=== PATIENT | female | born 1960 | race Caucasian/White ===

== ENCOUNTER 2017-03-16 18:00 | Observation (INO) | payer MEDICAID ==
--- NOTE | 2017-03-16 18:37 | ED Physician Documentation ---
PD HPI FOCAL NEURO - Stated complaint Stated Complaint: WORD FINDING DIFFICULTY - Chief complaint Chief Complaint: Neuro - History obtained from History obtained from: Patient - History of Present Illness Timing - onset: Today (this morning about 7:30 am) Timing - duration: Hours (1 hour) Timing - details: Abrupt onset. No: Still present Severity of deficit: Moderate (she was talking on phone with a client ([employer]) and noted onset of trouble processing what she wanted to say and get the correct words aligned. She talked with the client who said that she did have very slow talking but the words were intelligible and appropriate. She also felt some numbness or just not quite right on left face. No arm nor leg weakness. This lasted about an hour and then talking normal, but still feeing like her face felt "funny" on left.) Weakness: No: Face, Arm, Hand, Leg, Foot, Right, Left, Other Numbness: Face, Left Associated symptoms: No: Nausea / vomiting, Syncope, Head injury Contributing factors: negative: Anticoagulated, Vascular dz, Atrial fibrillation Similar symptoms before: Has not had sx before Recently seen: Not recently seen Review of Systems Constitutional: denies: Fever, Chills, Myalgias, Fatigue Nose: denies: Rhinorrhea / runny nose, Congestion Throat: denies: Sore throat Cardiac: denies: Chest pain / pressure, Palpitations Respiratory: denies: Dyspnea, Cough, Wheezing GI: denies: Abdominal Pain, Nausea, Vomiting : denies: Dysuria, Frequency Skin: denies: Rash, Lesions Musculoskeletal: reports: Other (she struck her right little toe on furniture couple days ago with bruising and swelling at base of little toe. No calf/foot injury.) Neurologic: reports: Altered mental status (the receptive aphasia earlier today and then feeling left face "numbness"/just not feeling right.). 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 - Present Medications Home Medications: Ambulatory Orders Medication Instructions Recorded Confirmed Thyroid,Pork [Wp Thyroid] 130 mg PO DAILY 01/08/15 03/16/17 - Allergies Allergies/Adverse Reactions: Allergies Allergy/AdvReac Type Severity Reaction Status Date / Time codeine AdvReac Itching Verified 02/08/14 16:16 narcotic AdvReac Itching Uncoded 02/08/14 16:18 - Social History Does the pt smoke?: No Smoking Status: Never smoker Does the pt drink ETOH?: No Does the pt have substance abuse?: No - Family History Family history: denies: Venous thromboembolism, CVA, Cerebral aneurysm - Immunizations Immunizations are current?: Yes PD ED PE NORMAL - Vitals Vital signs reviewed: Yes - General General: Alert and oriented X 3, No acute distress, Well developed/nourished - HEENT HEENT: PERRL, EOMI, Moist mucous membranes, Pharynx benign - Neck Neck: Supple, no meningeal sign, No adenopathy, No JVD, No bruit - Cardiac Cardiac: RRR, No murmur - Respiratory Respiratory: Clear bilaterally - Abdomen Abdomen: Soft, Non tender - Female Female : Deferred - Rectal Rectal: Deferred - Back Back: No CVA TTP - Derm Derm: Normal color, Warm and dry - Extremities Extremities: No tenderness to palpate, Normal ROM s pain, No edema, No calf tenderness / cord, Other (tenderness with bruising and swelling right base little toe. ) - Neuro Neuro: Alert and oriented X 3, psychologist clinical 2-12 intact, No motor deficit, No sensory deficit, Normal speech - Psych Psych: Normal mood, Normal affect NIHSS - Level of Consciousness Level of consciousness: (0) Alert, Keenly responsive LOC Questions: (0) Answers both Q's correct LOC Commands: (0) Performs both correctly - Gaze Best Gaze: (0) Normal - Visual Visual: (0) No loss - Facial Palsy Facial Palsy: (0) Normal, symmetrical movement - Motor Arms (both separate) Motor Arm (right): (0) No drift Motor Arm (left): (0) No drift - Motor Legs (both separate) Motor Leg (right): (0) No drift Motor Leg (left): (0) No drift - Limb Ataxia Limb Ataxia: (0) Absent - Sensory Sensory: (0) Normal - Best Language Best Language: (0) No aphasia - Dysarthria Dysarthria: (0) Normal - Extinction and Inattention (formally neg Extinction and inattention: (0) No abnormality - Total Score/Results Total Score/Result: 0 Results - Vitals Vitals: Vital Signs - 24 hr 03/16/17 03/16/17 03/16/17 18:07 19:35 20:22 Heart Rate 102 H 94 98 Respiratory 20 14 17 Rate Blood Pressure 162/91 H 160/78 H 155/84 H O2 Saturation 98 97 97 03/16/17 03/16/17 21:00 22:11 Heart Rate 92 91 Respiratory 15 16 Rate Blood Pressure 163/75 H 153/96 H O2 Saturation 96 97 Oxygen O2 Source Room air - Labs Labs: Laboratory Tests 03/16/17 03/16/17 03/16/17 18:26 19:26 19:26 WBC RBC Hgb Hct MCV MCH MCHC RDW Plt Count MPV Neut # Lymph # [place] # Eos # Baso # Absolute Nucleated RBC Band Neuts % (Manual) Nucleated RBCs Differential Comment Manual Slide Review Platelet Estimate Platelet Morphology RBC Morph Micro Appear ESR Sodium Potassium Chloride Carbon Dioxide Anion Gap BUN Creatinine Estimated GFR (MDRD) Glucose POC Whole Bld Glucose 166 H Glycated Hemoglobin 7.0 H Estim Average Glucose 154 H Calcium Total Bilirubin AST ALT Alkaline Phosphatase Total Protein Albumin Globulin Albumin/Globulin Ratio Lipase TSH 0.52 Urine Color Urine Clarity Urine pH Ur Specific [place] Urine Protein Urine Glucose (UA) Urine Ketones Urine Occult Blood Urine Nitrite Urine Bilirubin Urine Urobilinogen Ur Leukocyte Esterase Ur Microscopic Review Urine Culture Comments 03/16/17 03/16/17 03/16/17 19:29 19:29 19:29 WBC 10.8 RBC 5.23 Hgb 14.9 Hct 43.4 MCV 83.0 MCH 28.4 MCHC 34.2 RDW 13.2 Plt Count 213 MPV 7.7 L Neut # 4.4 Lymph # 5.2 H [place] # 0.9 Eos # 0.2 Baso # 0.1 Absolute Nucleated RBC 0.01 Band Neuts % (Manual) Not Reportable Nucleated RBCs 0.1 Differential Comment MANUAL=AUTO DIFF Manual Slide Review Indicated Platelet Estimate NORMAL (130-450,000) Platelet Morphology NORMAL APPEARANCE RBC Morph Micro Appear NORMAL APPEARANCE ESR 9 Sodium 137 Potassium 3.8 Chloride 103 Carbon Dioxide 24 Anion Gap 10.0 BUN 13 Creatinine 0.7 Estimated GFR (MDRD) 87 L Glucose 192 H POC Whole Bld Glucose Glycated Hemoglobin Estim Average Glucose Calcium 9.1 Total Bilirubin 0.3 AST 45 H ALT 53 Alkaline Phosphatase 96 Total Protein 7.3 Albumin 3.9 Globulin 3.4 Albumin/Globulin Ratio 1.1 Lipase 22 TSH Urine Color Urine Clarity Urine pH Ur Specific [place] Urine Protein Urine Glucose (UA) Urine Ketones Urine Occult Blood Urine Nitrite Urine Bilirubin Urine Urobilinogen Ur Leukocyte Esterase Ur Microscopic Review Urine Culture Comments 03/16/17 20:12 WBC RBC Hgb Hct MCV MCH MCHC RDW Plt Count MPV Neut # Lymph # [place] # Eos # Baso # Absolute Nucleated RBC Band Neuts % (Manual) Nucleated RBCs Differential Comment Manual Slide Review Platelet Estimate Platelet Morphology RBC Morph Micro Appear ESR Sodium Potassium Chloride Carbon Dioxide Anion Gap BUN Creatinine Estimated GFR (MDRD) Glucose POC Whole Bld Glucose Glycated Hemoglobin Estim Average Glucose Calcium Total Bilirubin AST ALT Alkaline Phosphatase Total Protein Albumin Globulin Albumin/Globulin Ratio Lipase TSH Urine Color YELLOW Urine Clarity CLEAR Urine pH 6.0 Ur Specific [place] <=1.005 Urine Protein NEGATIVE Urine Glucose (UA) 100 H Urine Ketones NEGATIVE Urine Occult Blood NEGATIVE Urine Nitrite NEGATIVE Urine Bilirubin NEGATIVE Urine Urobilinogen 0.2 (NORMAL) Ur Leukocyte Esterase NEGATIVE Ur Microscopic Review NOT INDICATED Urine Culture Comments NOT INDICATED - Rads (name of study) head CT Radiology: Prelim report reviewed (no acute process) right little toe Radiology: Prelim report reviewed, EMP read contemporaneously (nondisplaced fracture base of proximal phalanx. ) PD MEDICAL DECISION MAKING - ED course Complexity details: reviewed results, considered differential (seems TIA. Can check CBC and ESR to eval for potential vasculitis. Has nto had injury, so not concussive. No infectious symptoms. ), d/w patient, d/w urban design consultant (Dr. Banuelos , hospitalist) Departure - Departure Disposition: 66 [facility] DC/Xfer Clinical Impression: TIA (transient ischemic attack) Qualifiers: Transient cerebral ischemia type: unspecified Qualified Code(s): G45.9 - Transient cerebral ischemic attack, unspecified Toe fracture, right Qualifiers: Encounter type: initial encounter Toe: lesser toe Fracture type: closed Phalanx : proximal Fracture alignment: nondisplaced Qualified Code(s): S92.514A - Nondisplaced fracture of proximal phalanx of right lesser toe(s), initial encounter for closed fracture Condition: Stable Record reviewed to determine appropriate education?: Yes Discharge Date/Time: 03/16/17 22:43
[2017-03-16] MEDS ORDERED: SODIUM CHLORIDE 0.9% 1,000 ML IV ONE (19:12)
[2017-03-16 19:34] LABS: BASOPHILS # (AUTO) 0.1 10^3/uL (0.0-0.1); EOSINOPHILS # (AUTO) 0.2 10^3/uL (0.0-0.7); EOSINOPHILS % (AUTO) 2.2 %; HCT - HEMATOCRIT 43.4 % (37.0-47.0); HGB - HEMOGLOBIN 14.9 g/dL (12.0-16.0); LYMPHOCYTES # (AUTO) 5.2 10^3/uL (1.5-3.5); LYMPHOCYTES % (AUTO) 48.4 %; MEAN CORPUSCULAR HEMOGLOBIN 28.4 pg (27.0-31.0); MEAN CORPUSCULAR HGB CONC 34.2 g/dL (32.0-36.0); MEAN PLATELET VOLUME 7.7 fL (7.9-10.8); MONOCYTES # (AUTO) 0.9 10^3/uL (0.0-1.0); NEUTROPHILS # (AUTO) 4.4 10^3/uL (1.5-6.6); NEUTROPHILS % (AUTO) 40.4 %; NUCLEATED RED BLOOD CELLS AUTO 0.1 /100WBC; RED BLOOD COUNT 5.23 10^6/uL (4.20-5.40); RED CELL DISTRIBUTION WIDTH 13.2 % (12.0-15.0); UNCORRECTED WHITE BLOOD COUNT 10.8 x10^3/uL; WHITE BLOOD COUNT 10.8 x10^3/uL (4.8-10.8)
[2017-03-16 19:47] LABS: ALBUMIN/GLOBULIN RATIO 1.1 (1.0-2.2); BILIRUBIN,TOTAL 0.3 mg/dL (0.2-1.0); CALCIUM 9.1 mg/dL (8.5-10.3); CREATININE 0.7 mg/dL (0.4-1.0); POTASSIUM 3.8 mmol/L (3.5-5.0); TOTAL PROTEIN 7.3 g/dL (6.7-8.2)
[2017-03-16 19:57] LABS: PLATELET ESTIMATE, MANUAL NORMAL (130-450,000) (NORMAL); PLATELET MORPHOLOGY NORMAL APPEARANCE (NORMAL)
[2017-03-16 19:58] LABS: NP AUTO DIFFERENTIAL? NO; NP MAN DIFFERENTIAL? YES
[2017-03-16 20:23] LABS: BILIRUBIN,URINE NEGATIVE (NEGATIVE)
[2017-03-16 20:24] LABS: UA CHARGE (STRIP ONLY) YES; UR CULTURE IF IND NOT INDICATED
[2017-03-16] MEDS ORDERED: ASPIRIN CHEW 81 MG TABLET PO STA (21:02)
[2017-03-16] MEDS ORDERED: ASPIRIN 325 MG TABLET PO ONE (21:04)
[2017-03-16] MEDS ORDERED: ASPIRIN CHEW 81 MG TABLET ONE (21:07)
--- NOTE | 2017-03-16 21:31 | CT Preliminary Report ---
Exam: CT Head W/O IMPRESSION: Normal head CT. [facility] SITE ID: [id number]
--- NOTE | 2017-03-16 21:34 | CT Report ---
EXAM: CT HEAD EXAM DATE: 03/16/2017 08:58 PM. CLINICAL HISTORY: Transient ischemic attack/aphasia earlier today. COMPARISON: None. TECHNIQUE: Multiaxial CT images were obtained from the foramen magnum to the vertex. IV contrast: Non e. Reformats: Coronal. In accordance with CT protocol optimization, one or more of the following dose reduction techniques w ere utilized for this exam: automated exposure control, adjustment of mA and/or KV based on patient s ize, or use of iterative reconstructive technique. FINDINGS: Parenchyma: No intraparenchymal hemorrhage. No evidence of mass, midline shift, or CT findings of inf arction. Marr-white differentiation is distinct. Extraaxial Spaces: Normal for age. No subdural or epidural collections identified. Ventricles: Normal in size and position. Sinuses: Imaged paranasal sinuses, orbits, and mastoids show no significant abnormality. Bones: No evidence of fracture or calvarial defect. Other: None. IMPRESSION: Normal head CT. [facility] Referring Provider Line: [phone] SITE ID: [id number]
--- NOTE | 2017-03-16 21:49 | XRAY Preliminary Report ---
Exam: XR Toe(s) RT IMPRESSION: Nondisplaced proximal phalangeal fracture right fifth digit. [facility] SITE ID: [id number]
--- NOTE | 2017-03-16 21:52 | XRAY Report ---
EXAM: RIGHT TOE RADIOGRAPHY EXAM DATE: 03/16/2017 08:42 PM. CLINICAL HISTORY: Injured little toe few days ago. COMPARISON: None. TECHNIQUE: 3 views. FINDINGS: Bones: Transverse fracture mid diaphysis proximal phalanx right fifth digit. No significant displacem ent. Joints: Normal. No subluxations. Soft Tissues: Mild soft tissue swelling. IMPRESSION: Nondisplaced proximal phalangeal fracture right fifth digit. [facility] Referring Provider Line: [phone] SITE ID: [id number]
[2017-03-16] MEDS ORDERED: ACETAMINOPHEN 325 MG TABLET PO PRN ×2 (22:12→22:49)
[2017-03-16] MEDS ORDERED: SODIUM CHLORIDE FLUSH 0.9% 10 ML SYRINGE IVP PRN ×2 (22:16→22:49)
[2017-03-16] MEDS ORDERED: ONDANSETRON ODT 4 MG TABLET TL PRN ×2 (22:16→22:49)
[2017-03-16 22:57] LABS: HEMOGLOBIN A1C 0.84 g/dL
--- NOTE | 2017-03-17 02:44 | Ultrasound Preliminary Report ---
Exam: US Carotid Doppler Complete IMPRESSION: 1. Calcified shadowing carotid plaque bilaterally with less than 50% stenosis. 2. Antegrade flow in both vertebral arteries. Validated velocity measurements with angiographic measurements and velocity criteria are extrapolated from diameter data as defined by the Society of Radiologists in Ultrasound Consensus Conference Radi ology 2003; 229;340-346. [facility] SITE ID: [id number]
--- NOTE | 2017-03-17 03:03 | Ultrasound Report ---
EXAM: CAROTID DOPPLER ULTRASOUND EXAM DATE: 03/17/2017 12:20 AM. CLINICAL HISTORY: TIA. COMPARISON: None. TECHNIQUE: Real-time sonographic vascular imaging was performed by the carbon paper interleafer through the FlexGenti d arterial system with a linear transducer utilizing color-flow, Doppler flow and spectral analysis. Multiple community health program representative static images were saved for review. FINDINGS: Calcified shadowing plaque in the carotid bifurcations and internal carotid arteries bilaterally. Thomas nosis appears to be less than 50% bilaterally. Antegrade flow is seen in both vertebral arteries. Right: RCCA Prox: PSV 71.9 cm/sec. RCCA Dist: PSV 76.3 cm/sec, EDV 17.9 cm/sec. RECA: PSV 144 cm/sec. R Bulb: PSV 48.2 cm/sec, EDV 9.7 cm/sec, ICA/CCA ratio 0.6. JJ Prox: PSV 115.7 cm/sec, EDV 21.6 cm/sec, ICA/CCA ratio 1.5. JJ Mid: PSV 96.7 cm/sec, EDV 31.4 cm/sec, ICA/CCA ratio 1.3. JJ Dist: PSV 51.9 cm/sec, EDV 18.4 cm/sec, ICA/CCA ratio 0.7. RVA: PSV 73.1 cm/sec. RVA flow direction: Antegrade. Left: LCCA Prox: PSV 135.3 cm/sec. LCCA Dist: PSV 89.9 cm/sec, EDV 16.0 cm/sec. LECA: PSV 104.2 cm/sec. L Bulb: PSV 109.2 cm/sec, EDV 13.4 cm/sec, ICA/CCA ratio 1.2. LICA Prox: PSV 120.2 cm/sec, EDV 19.3 cm/sec, ICA/CCA ratio 1.3. LICA Mid: PSV 146.6 cm/sec, EDV 25.5 cm/sec, ICA/CCA ratio 1.6. LICA Dist: PSV 81.7 cm/sec, EDV 26.8 cm/sec, ICA/CCA ratio 0.9. LVA: PSV 34.9 cm/sec. LVA flow direction: Antegrade. Other: None. IMPRESSION: 1. Calcified shadowing carotid plaque bilaterally with less than 50% stenosis. 2. Antegrade flow in both vertebral arteries. Validated velocity measurements with angiographic measurements and velocity criteria are extrapolated from diameter data as defined by the Society of Radiologists in Ultrasound Consensus Conference Radi ology 2003; 229;340-346. [facility] Referring Provider Line: [phone] SITE ID: [id number]
[2017-03-17] MEDS ORDERED: SODIUM CHLORIDE FLUSH 0.9% 10 ML SYRINGE IVP SCH ×2 (06:00)
[2017-03-17] MEDS ORDERED: INSULIN ASPART 300 UNIT/3 ML PEN SUBQ SCH (08:00)
[2017-03-17] MEDS ORDERED: ASPIRIN 325 MG TABLET PO SCH ×2 (08:00)
[2017-03-17] MEDS: INSULIN ASPART 300 UNIT/3 ML PEN SUBQ SCH ×2 (08:30→11:50)
[2017-03-17] MEDS ORDERED: ENOXAPARIN 40 MG/0.4 ML SYRINGE SUBQ SCH ×2 (09:00)
[2017-03-17] MEDS ORDERED: POLYETHYLENE GLYCOL 3350 17 GM PACKET PO SCH ×2 (09:00)
--- NOTE | 2017-03-17 11:53 | HISTORY & PHYSICAL EXAMINATION ---
DATE OF ADMISSION: 03/16/2017 PRIMARY CARE PROVIDER: Joey Rashid MD. CHIEF COMPLAINT: Episode of expressive aphasia. HISTORY OF PRESENT ILLNESS: This is a 56-year-old female whose past medical history is significant fo r prediabetes, history of hypothyroidism, history of lower extremity neuropathy, who presents with ea gómez this morning while talking to a client on the phone of expressive aphasia which lasted approxim ately 10 minutes. She also noticed briefly the left side of her face maybe for about a minute felt so me tingling. She also is having a slight right frontal headache at this time. [facility] of head without contrast which reveals no acute abnormalities. EKG is sin us rhythm. PAST MEDICAL HISTORY: 1. Prediabetes. 2. History of hypothyroidism. 3. History of hypertension. 4. History of hyperlipidemia. MEDICATIONS UPON ADMISSION: Thyroid [place] 130 mg p.o. daily. ALLERGIES: CODEINE. SOCIAL HISTORY: Lives with family, smoking none, alcohol none. FAMILY MEDICAL HISTORY: Mother with a history of ovarian carcinoma diagnosed age 64. Father with a hi story of brain tumor age 84. REVIEW OF SYSTEMS: Denies any fevers, chills. Denies any motor weakness. All other review of systems are reviewed and are negative except for as in HPI. PHYSICAL EXAMINATION: VITAL SIGNS: Temperature is afebrile. Heart rate is 91, blood pressure 153/96, respiratory rate 16, r oom air saturation 97%. CONSTITUTIONAL: Middle aged woman in no acute distress. HEENT: Head normocephalic, atraumatic. Eyes PERRLA-DC, EOMI. Mouth: No lesions. NECK: No adenopathy. Carotids 2+/4 without bruits. CHEST: Clear to auscultation. COR: Regular rate and rhythm, S1, S2. ABDOMEN: Soft, nontender, bowel sounds present. EXTREMITIES: Exam reveals no pedal edema. She does have decreased sensation from about mid lower leg bilaterally which is chronic for her. LABS: EKG is sinus at a rate of 97 with an isolated PVC. White count 10.8, hemoglobin 14.9, hematocrit 43.4, MCV 83.0, platelets 213, neutrophils 4.4, sodium 137, potassium 3.8, chloride 104, bicarb 24, anion gap 10, BUN 13, creatinine 0.7, calculated GFR 87, glucose 192, calcium 9.1, total bilirubin 0.3, AST 45, ALT 53, alkaline phosphatase 96, total protei n 7.3, albumin 3.9, lipase at 22. Urine reveals specific gravity less than 1.005, glucose 100, otherwise negative. ASSESSMENT AND PLAN: 1. Episode of expressive aphasia with possible transient ischemic attack, acute, present on admission . Will go ahead and check MRI of brain and MRA of brain and carotid duplex in the a.m. Will initiate ASA 324 mg daily and will also start on atorvastatin. Do neurologic checks per protocol. Will check e chocardiogram. 2. Hyperglycemia, acute, present on admission. Will check hemoglobin A1c. Will place on subcutaneous insulin protocol. 3. History of hypothyroidism. Will check TSH. 4. DVT prophylaxis. SCD's and subcutaneous Lovenox prophylactic. 5. CODE STATUS; THE PATIENT IS FULL CODE. TIME SPENT: 60 minutes. JOB #: [id number] EXT JOB #:[id number]
[2017-03-17 12:39] VITALS: BP 123/73
--- NOTE | 2017-03-17 13:16 | Discharge Plan ---
Discharge Plan Disposition: Home, Self Care Condition: Stable Prescriptions: Aspirin [Adult Low Dose Aspirin EC] 81 mg PO DAILY #15 tablet. Diet: Diabetic Activity Restrictions: Activity as Tolerated Shower Restrictions: No Driving Restrictions: No Weight Bearing: Full Weight Additional Instructions or Follow Up instructions: PCP and neurologist in one week blood work include lipid panel in one week OPEN MRI as soon as possible or in one week, which is the earliest No Smoking: If you smoke, Please STOP! Call for help. Follow-up with: Joey Rashid MD [Primary Care Provider] -
[2017-03-17] MEDS ORDERED: ATORVASTATIN 40 MG TABLET PO SCH ×2 (21:00)
[2017-03-18] MEDS ORDERED: THYROID 60 MG TABLET PO SCH (07:00)
--- NOTE | 2017-03-20 08:23 | DISCHARGE SUMMARY ---
DATE OF ADMISSION: 03/16/2017 DATE OF DISCHARGE: 03/17/2017 PRIMARY CARE PROVIDER: Joey Rashid MD DISCHARGE DIAGNOSES 1. Transient ischemic attack. 2. Prediabetes. 3. Hyperlipidemia. 4. Hypothyroidism. DISCHARGE MEDICATIONS 1. Baby aspirin 81 mg p.o. daily. 2. Thyrod, Pork 130 mcg p.o. daily. HOSPITAL COURSE: Please review Dr. Azalea Banuelos's H and P on 03/16/2017. Patient did come 017 for transient ischemic attack. Patient reports when he used the phone, talking with his client, he found himself having expressive aphasia that lasted about 10 minutes. Also patient reported she n oticed the left side of her face had some numbness about a few minutes. On patient's evaluation in [facility] emergency room, patient did have CT. CT reveals finding. Patient's second image study, had an ultrasound of the carotid, and the result indicated patient stenosis for carotid less than 50% . Also patient had an echo study that indicated normal left ventricular and normal right ventricular function. EF between 60% and 65%. The patient reported she cannot do inpatient MRI, she has experi enced never successful to do the MRI in the inpatient. She wanted open MRI; unfortunately the hospit al does not have, so she requests discharge, do the outpatient MRI or MRA, so this is the reason maryann ent wanted to be discharged. INTERVENTION: Patient in the hospital first was in the ER, they give 125 mg aspirin and continue on the medical floor, give 81 mg aspirin. Patient will resume his home medication. PHYSICAL EXAMINATION VITAL SIGNS: Temperature afebrile. Heart rate 91, blood pressure 153/96, respiratory rate 16, room ai r O2 saturation 97%. GENERAL: Appears patient in no acute distress. HEENT: Normal. Head: Normocephalic, atraumatic. Eyes: PERRLA, EOMI. Mouth: No lesion. NECK: Normal inspection. Trachea in middle. CHEST: Clear to auscultation. Regular rate and rhythm. S1, S2. ABDOMEN: Soft and nontender. Bowel sounds normal. EXTREMITIES: No edema. Full range of motion. NEUROLOGIC: Patient is alert, oriented 3, cranial nerves normal, full range of motion, sensation, mob ilization is normal. STUDIES EKG: Sinus rhythm and 97 heart rate. FOLLOWUP 1. Patient is advised to follow up with PCP in 1 week, and also patient advised to see PCP and alyssa blas to do the other MRI. For patient policy, patient needed his PCP referral to outpatient MRI. 2. Patient also advised to follow up with a neurologist in 1 week. 3. Patient prescribed 81 mg aspirin for 2 weeks. 4. Patient will have a regular diet. 5. Activity: As tolerated. Time spent on patient discharge 50 minutes. JOB #: [id number] EXT JOB #:[id number]
== END 2017-03-17 13:55 | disposition home or self-care (01) ==
LOC: ED 18:00 → MS 22:16 → ED 22:43
PROVIDERS: ADMIT Specialist; ATTEND Nurse Practitioner Gerontology
DX: G45.9 Transient cerebral ischemic attack, unspecified (principal); S92.514A Nondisplaced fracture of proximal phalanx of right lesser toe(s), initial encounter for closed fracture; R73.03 Prediabetes; E78.5 Hyperlipidemia, unspecified; E03.9 Hypothyroidism, unspecified; G62.9 Polyneuropathy, unspecified; W22.03XA Walked into furniture, initial encounter; Z86.79 Personal history of other diseases of the circulatory system
CPT/HCPCS: 36415; 70450; 73660; 80053; 81003; 83036; 83690; 84443; 85025; 85651; 93005; 93306; 93880; 96360; 96361; 99285; A9270; G0378; 81001; 87086

== ENCOUNTER 2017-12-22 14:34 | Outpatient (CLI) | payer MEDICAID ==
--- NOTE | 2017-12-22 16:18 | XRAY Report ---
RIGHT TEMPOROMANDIBULAR JOINT: 12/22/2017 CLINICAL INDICATION: Right TMJ tenderness. FINDINGS: Frontal and lateral closed and open mouth views of the right temporomandibular joint were obtained. The mandibular condyle is normally seated in the temporal fossa on the closed mouth view, and demonstrates normal anterior translation on the open mouth view. No erosion or sclerosis of the mandibular condyle is appreciated. IMPRESSION: NORMAL RIGHT TEMPOROMANDIBULAR JOINT. TD: 12/22/2017 16:17
== END 2017-12-22 14:35 | disposition home or self-care (01) ==
LOC: DI.S 14:34
PROVIDERS: ATTEND Internal Medicine
DX: M26.621 Arthralgia of right temporomandibular joint (principal)

== ENCOUNTER 2017-12-27 07:30 | Outpatient (CLI) | payer MEDICAID ==
--- NOTE | 2017-12-27 12:33 | Ultrasound Report ---
LIMITED ABDOMINAL ULTRASOUND: 12/27/2017 CLINICAL INDICATION: Right upper quadrant pain. TECHNIQUE: Real-time scanning was performed with veterans contact representative static images obtained. FINDINGS: The liver measures 17.6 cm. Hepatic echogenicity is diffusely increased, compatible with fatty infiltration. No focal parenchymal lesion or intrahepatic biliary dilatation is seen. The common bile duct measures 3 mm. The gallbladder is normal. The right kidney measures 12.1 cm, and demonstrates no hydronephrosis. A 1.3 cm right renal cyst is incidentally noted. No free fluid is present. IMPRESSION: FATTY INFILTRATION OF THE LIVER. NO EVIDENCE OF CHOLELITHIASIS OR BILIARY OBSTRUCTION. TD: 12/27/2017 12:32
== END 2017-12-27 07:31 | disposition home or self-care (01) ==
LOC: DI 07:30
PROVIDERS: ATTEND Internal Medicine
DX: K76.0 Fatty (change of) liver, not elsewhere classified (principal)
CPT/HCPCS: 76705